=== PATIENT | male | born 1965 | race Caucasian/White ===

== ENCOUNTER → 2017-06-09 | Outpatient (CLI) | payer OTHER ==
[~2017-06-09] VITALS: Ht 175.3 cm; Wt 72.0 kg
[~2017-06-09] MED LIST: ALTACE10 MG PO; B-125000 MC2 PO; CHLORDIAZEPOXID25 MG PO; COBAL-10001000 MCG/2 PO; FOLIC ACID1 MG PO; Folvite PO; MELATONIN5 M2 PO; METOPROLOL SUCC50 MG PO; QUESTRAN4 GM/PACKE PO; RAMIPRIL5 MG PO; THERAGRAN1 TABLET PO; THIAMINE,VITAM100 MG PO; TOPROL XL100 MG PO; Thiamine,Vitamin B1 PO
[2017-06-09 16:38] VITALS: BP 166/97
== END | disposition home or self-care (01) ==
LOC: IVINF 16:33
DX: A64 Unspecified sexually transmitted disease (principal)
CPT/HCPCS: 96372; J0696